=== PATIENT | male | born 1960 | race Caucasian/White ===

== ENCOUNTER 2016-09-01 20:22 | Emergency (ER) | payer OTHER ==
--- NOTE | 2016-09-01 20:53 | ED CLINICAL REPORT ---
Clinical Report - Physicians/Mid Levels [facility] [address] [place] [address] 09/01/2016 20:23 Patient: CELESTE CROWDER Time Seen: 2043; initial patient contact, initial documentation, patient care assumed. Arrived- In handcuffs. Police present. Historian- patient. HISTORY OF PRESENT ILLNESS Chief Complaint: ( CTB). No current or associated symptoms. (pt has absolutely no complaints, pain, concerns, injury/trauma or any illness, here in police custody and officer needs medically clearance to book). Similar symptoms previously: None. Recent medical care: Not recently seen/assessed. REVIEW OF SYSTEMS No fever, sore throat, sinus drainage, nasal congestion or cough. No difficulty breathing, chest pain, abdominal pain, vomiting or diarrhea. All systems otherwise negative, except as recorded above. PAST HISTORY See nurses notes. PROBLEMS: Rib Fracture. Tetanus Status. Lifestyle / Substance Problems. Abdominal Pain. Hepatitis C. Bronchospasm. Back Pain. --20:39 Hollie Lindo R.N. ADDITIONAL SURGERIES: Ankle surgery. Back Surgery. Cholecystectomy. Neck Surgery. Shoulder Surgery. Skin grafting. --20:39 Hollie Lindo R.N. SOCIAL HISTORY Heavy tobacco smoker. Occasional alcohol use. History of heavy IV drug use: heroin, marijuana. No recent travel. Is a local resident. FAMILY HISTORY Negative. ADDITIONAL NOTES The nursing notes have been reviewed with agreement regarding the chief complaint, HPI, ROS, PMH and patient medications and allergies. PHYSICAL EXAM Vital Signs: 09/01/2016 20:38 BP: 116/78. HR: 66. RR: 16. O2 saturation: 98%. Temp: 98.5 F. Pain level now: 0/10. Have been reviewed as normal and appear to be correct. Appearance: Alert. No acute distress. Eyes: Pupils equal, round and reactive to light. Eyes normal inspection. Neck: Normal inspection. Neck supple. CVS: Normal heart rate and rhythm. Heart sounds normal. Pulses normal. Respiratory: No respiratory distress. Breath sounds abnormal. Inspiratory mild bilateral wheezes diffusely. Chest nontender. Abdomen: No visible injury. Soft and nontender. Back: Normal inspection. Skin: Skin warm and dry. Normal skin color. No rash. Normal skin turgor. Extremities: Extremities exhibit normal ROM. No lower extremity edema. Neuro: Oriented X 3. No motor deficit. No sensory deficit. PROGRESS AND PROCEDURES Course of Care: 20:53 09/01/16. pt has brief kenna for #6 er visits, see report for full details. Patient counseled in person regarding the patient's stable condition and diagnosis. 20:52. Differential Diagnosis: Above considerations are based on history and physical exam. Differential diagnosis was discussed with patient. Disposition: Discharged home in good and unchanged condition (20:52). Condition: good and stable. CLINICAL IMPRESSION Normal exam upon presentation, while in the ED and at discharge. INSTRUCTIONS (pt is medically cleared to go with police to [facility]). Warnings: GENERAL WARNINGS: Return or contact your physician immediately if your condition worsens or changes unexpectedly, if not improving as expected, or if other problems arise. Specifically return if problem worsens. Follow-up: Follow up with your doctor in about one week as needed. Call for an appointment. Summary of care provided to patient. Understanding of the discharge instructions verbalized by patient. (Electronically signed by Charley Navarrete A.R.N.P. 09/01/2016 21:25)
--- NOTE | 2016-09-01 20:53 | ED NURSING NOTES ---
Clinical Report - Nurses [facility] [address] [place] [address] 09/01/2016 20:23 Patient: CELESTE CROWDER TRIAGE Triage time 20:35 Sep 01 2016. Acuity: LEVEL 5. Chief Complaint: (clear to book, no chief complaint). 20:41 09/01/16. ROBERT COMA SCORE: [place] Coma Scale: 15- eyes open spontaneously (4); best verbal response- oriented x 4 (5); best motor response- obeys commands (6). --20:41 Hollie Lindo R.N. 20:38 09/01/16. BP: 116/78. HR: 66. RR: 16. O2 saturation: 98%. Temp: 98.5 F. Pain level now: 0/10. --20:41 Hollie Lindo R.N. Weight: 81.6 kg stated. Height/Length: 67 inches Per Patient. BMI: 28.2. --20:35 Hollie Lindo R.N. Medications None. --20:39 Hollie Lindo R.N. Medication/allergy information source: the patient. --20:41 Hollie Lindo R.N. Allergies Codeine. Sulfa Antibiotics. --20:39 Hollie Lindo R.N. Toradol. --20:39 Hollie Lindo R.N. History Historian: police and patient. Arrived in police custody. This started just prior to arrival. 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 PAST MEDICAL HX: Immunizations: up-to-date. SOCIAL HX: Heavy tobacco smoker- 1 pack per day. Alcohol use. History of drug use. No infectious disease exposure. ABUSE ASSESSMENT: No report of abuse. SELF HARM ASSESSMENT: A self harm assessment was performed. The patient answered "no" to the question "Have you recently felt down, depressed, or hopeless?", "Have you noticed less interest or pleasure in doing things?", "Do you have thoughts of harming or killing yourself?", "Are you here because you tried to hurt yourself?", "Have you ever tried to hurt yourself before today?", "Have you recently had thoughts about harming or killing others?" and "Do you have any dangerous items in your possession?". NUTRITIONAL RISK ASSESSMENT: The nutritional risk assessment revealed no deficiencies. FUNCTIONAL ASSESSMENT: Functional assessment: no impairments noted. LEARNING NEEDS ASSESSMENT: The learning needs assessment revealed no barriers. SKIN INTEGRITY ASSESSMENT: Skin integrity risk assessment completed. No skin integrity risk identified. --20:41 Hollie Lindo R.N. PROBLEMS: Rib Fracture. Tetanus Status. Lifestyle / Substance Problems. Abdominal Pain. Hepatitis C. Bronchospasm. Back Pain. --20:39 Hollie Lindo R.N. ADDITIONAL SURGERIES: Ankle surgery. Back Surgery. Cholecystectomy. Neck Surgery. Shoulder Surgery. Skin grafting. --20:39 Hollie Lindo R.N. Interventions ID band on patient. --20:41 Hollie Lindo R.N. PHYSICAL ASSESSMENT 20:42 09/01/16. GENERAL / NEURO / PSYCH: Alert. Oriented X 4. Appears in no acute distress. HEENT: Pupils equal, round and reactive to light. No facial asymmetry noted. Mucous membranes are pink. RESPIRATORY: Breath sounds within normal limits. CVS: Pulses within normal limits. GI / : Abdomen soft and nontender. SKIN: Skin intact. Skin is warm and dry. Normal skin turgor. --20:42 Hollie Lindo R.N. NURSING PROGRESS NOTES 20:41 09/01/16. Patient identifiers checked. Bed placed in lowest position. Brakes of bed on. Patient ready for evaluation. --20:41 Hollie Lindo R.N. DISPOSITION / DISCHARGE 20:59 09/01/16. Condition at departure: improved and stable. The goals identified in the patient's plan of care were met. No learning barriers present. Discharge instructions provided and reviewed with the patient. Patient verbalized understanding. Written instructions provided in Georgian. The patient was discharged to police department facility and accompanied by a police escort. He left the Emergency Department ambulatory and via police department vehicle. --20:59 Hollie Lindo R.N. 20:38 09/01/16. BP: 116/78. HR: 66. RR: 16. O2 saturation: 98%. Temp: 98.5 F. Pain level now: 0/10. --20:59 Hollie Lindo R.N. Departure time: 20:59 Sep 01 2016. --21:00 Hollie Lindo R.N. Locked/Released at 09/01/2016 21:01 by Hollie Lindo R.N.
--- NOTE | 2016-09-01 20:53 | ED CLINICAL REPORT ---
Clinical Report - Physicians/Mid Levels [facility] [address] [place] [address] 09/01/2016 20:23 Patient: CELESTE CROWDER Time Seen: 2043; initial patient contact, initial documentation, patient care assumed. Arrived- In handcuffs. Police present. Historian- patient. HISTORY OF PRESENT ILLNESS Chief Complaint: ( CTB). No current or associated symptoms. (pt has absolutely no complaints, pain, concerns, injury/trauma or any illness, here in police custody and officer needs medically clearance to book). Similar symptoms previously: None. Recent medical care: Not recently seen/assessed. REVIEW OF SYSTEMS No fever, sore throat, sinus drainage, nasal congestion or cough. No difficulty breathing, chest pain, abdominal pain, vomiting or diarrhea. All systems otherwise negative, except as recorded above. PAST HISTORY See nurses notes. PROBLEMS: Rib Fracture. Tetanus Status. Lifestyle / Substance Problems. Abdominal Pain. Hepatitis C. Bronchospasm. Back Pain. --20:39 Hollie Lindo R.N. ADDITIONAL SURGERIES: Ankle surgery. Back Surgery. Cholecystectomy. Neck Surgery. Shoulder Surgery. Skin grafting. --20:39 Hollie Lindo R.N. SOCIAL HISTORY Heavy tobacco smoker. Occasional alcohol use. History of heavy IV drug use: heroin, marijuana. No recent travel. Is a local resident. FAMILY HISTORY Negative. ADDITIONAL NOTES The nursing notes have been reviewed with agreement regarding the chief complaint, HPI, ROS, PMH and patient medications and allergies. PHYSICAL EXAM Vital Signs: 09/01/2016 20:38 BP: 116/78. HR: 66. RR: 16. O2 saturation: 98%. Temp: 98.5 F. Pain level now: 0/10. Have been reviewed as normal and appear to be correct. Appearance: Alert. No acute distress. Eyes: Pupils equal, round and reactive to light. Eyes normal inspection. Neck: Normal inspection. Neck supple. CVS: Normal heart rate and rhythm. Heart sounds normal. Pulses normal. Respiratory: No respiratory distress. Breath sounds abnormal. Inspiratory mild bilateral wheezes diffusely. Chest nontender. Abdomen: No visible injury. Soft and nontender. Back: Normal inspection. Skin: Skin warm and dry. Normal skin color. No rash. Normal skin turgor. Extremities: Extremities exhibit normal ROM. No lower extremity edema. Neuro: Oriented X 3. No motor deficit. No sensory deficit. PROGRESS AND PROCEDURES Course of Care: 20:53 09/01/16. pt has brief kenna for #6 er visits, see report for full details. Patient counseled in person regarding the patient's stable condition and diagnosis. 20:52. Differential Diagnosis: Above considerations are based on history and physical exam. Differential diagnosis was discussed with patient. Disposition: Discharged home in good and unchanged condition (20:52). Condition: good and stable. CLINICAL IMPRESSION Normal exam upon presentation, while in the ED and at discharge. INSTRUCTIONS (pt is medically cleared to go with police to group home). Warnings: GENERAL WARNINGS: Return or contact your physician immediately if your condition worsens or changes unexpectedly, if not improving as expected, or if other problems arise. Specifically return if problem worsens. Follow-up: Follow up with your doctor in about one week as needed. Call for an appointment. Summary of care provided to patient. Understanding of the discharge instructions verbalized by patient. (Electronically signed by Charley Navarrete A.R.N.P. 09/01/2016 21:25)
--- NOTE | 2016-09-01 20:53 | ED NURSING NOTES ---
Clinical Report - Nurses [facility] [address] [place] [address] 09/01/2016 20:23 Patient: CELESTE CROWDER TRIAGE Triage time 20:35 Sep 01 2016. Acuity: LEVEL 5. Chief Complaint: (clear to book, no chief complaint). 20:41 09/01/16. ROBERT COMA SCORE: [place] Coma Scale: 15- eyes open spontaneously (4); best verbal response- oriented x 4 (5); best motor response- obeys commands (6). --20:41 Hollie Lindo R.N. 20:38 09/01/16. BP: 116/78. HR: 66. RR: 16. O2 saturation: 98%. Temp: 98.5 F. Pain level now: 0/10. --20:41 Hollie Lindo R.N. Weight: 81.6 kg stated. Height/Length: 67 inches Per Patient. BMI: 28.2. --20:35 Hollie Lindo R.N. Medications None. --20:39 Hollie Lindo R.N. Medication/allergy information source: the patient. --20:41 Hollie Lindo R.N. Allergies Codeine. Sulfa Antibiotics. --20:39 Hollie Lindo R.N. Toradol. --20:39 Hollie Lindo R.N. History Historian: police and patient. Arrived in police custody. This started just prior to arrival. 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 PAST MEDICAL HX: Immunizations: up-to-date. SOCIAL HX: Heavy tobacco smoker- 1 pack per day. Alcohol use. History of drug use. No infectious disease exposure. ABUSE ASSESSMENT: No report of abuse. SELF HARM ASSESSMENT: A self harm assessment was performed. The patient answered "no" to the question "Have you recently felt down, depressed, or hopeless?", "Have you noticed less interest or pleasure in doing things?", "Do you have thoughts of harming or killing yourself?", "Are you here because you tried to hurt yourself?", "Have you ever tried to hurt yourself before today?", "Have you recently had thoughts about harming or killing others?" and "Do you have any dangerous items in your possession?". NUTRITIONAL RISK ASSESSMENT: The nutritional risk assessment revealed no deficiencies. FUNCTIONAL ASSESSMENT: Functional assessment: no impairments noted. LEARNING NEEDS ASSESSMENT: The learning needs assessment revealed no barriers. SKIN INTEGRITY ASSESSMENT: Skin integrity risk assessment completed. No skin integrity risk identified. --20:41 Hollie Lindo R.N. PROBLEMS: Rib Fracture. Tetanus Status. Lifestyle / Substance Problems. Abdominal Pain. Hepatitis C. Bronchospasm. Back Pain. --20:39 Hollie Lindo R.N. ADDITIONAL SURGERIES: Ankle surgery. Back Surgery. Cholecystectomy. Neck Surgery. Shoulder Surgery. Skin grafting. --20:39 Hollie Lindo R.N. Interventions ID band on patient. --20:41 Hollie Lindo R.N. PHYSICAL ASSESSMENT 20:42 09/01/16. GENERAL / NEURO / PSYCH: Alert. Oriented X 4. Appears in no acute distress. HEENT: Pupils equal, round and reactive to light. No facial asymmetry noted. Mucous membranes are pink. RESPIRATORY: Breath sounds within normal limits. CVS: Pulses within normal limits. GI / : Abdomen soft and nontender. SKIN: Skin intact. Skin is warm and dry. Normal skin turgor. --20:42 Hollie Lindo R.N. NURSING PROGRESS NOTES 20:41 09/01/16. Patient identifiers checked. Bed placed in lowest position. Brakes of bed on. Patient ready for evaluation. --20:41 Hollie Lindo R.N. DISPOSITION / DISCHARGE 20:59 09/01/16. Condition at departure: improved and stable. The goals identified in the patient's plan of care were met. No learning barriers present. Discharge instructions provided and reviewed with the patient. Patient verbalized understanding. Written instructions provided in Romanian. The patient was discharged to police department facility and accompanied by a police escort. He left the Emergency Department ambulatory and via police department vehicle. --20:59 Hollie Lindo R.N. 20:38 09/01/16. BP: 116/78. HR: 66. RR: 16. O2 saturation: 98%. Temp: 98.5 F. Pain level now: 0/10. --20:59 Hollie Lindo R.N. Departure time: 20:59 Sep 01 2016. --21:00 Hollie Lindo R.N. Locked/Released at 09/01/2016 21:01 by Hollie Lindo R.N.
--- NOTE | 2016-09-01 21:25 | ED MED RECONCILIATION SUMMARY ---
Patient: CELESTE CROWDER Medication Reconciliation Report [facility] VisitID: [id number] [address] [place] [address] 55y, M Registration Date/Time: 09/01/2016 Weight: 81.6 kg Height/Length: 67 in. BMI: 28.2 ALLERGIES: Codeine, Sulfa Antibiotics, Toradol The patient's Home Medications are listed below: NONE. The source(s) of the original Home Medication information: patient The following Medications were given to the patient in the Emergency Department: None. The following Medications were prescribed to the patient: None.
--- NOTE | 2016-09-01 21:25 | ED MAR SUMMARY ---
..... Medication Administration Record [facility] [address], [place] [id number] Patient: CELESTE CROWDER Visit ID: [id number] 55y, M Weight: 81.6 kg Height/Length: 67 in BMI: 28.2 ALLERGIES: Toradol, Sulfa Antibiotics, Codeine
--- NOTE | 2016-09-01 21:25 | ED DISCHARGE INSTRUCTIONS ---
Patient: CELESTE CROWDER General Instructions [facility] VisitID: [id number] [address] [place] [address] 55y, M Registration Date/Time: 09/01/2016 Normal exam upon presentation, while in the ED and at discharge. INSTRUCTIONS (pt is medically cleared to go with police to group home). Warnings: GENERAL WARNINGS: Return or contact your physician immediately if your condition worsens or changes unexpectedly, if not improving as expected, or if other problems arise. Specifically return if problem worsens. Follow-up: Follow up with your doctor in about one week as needed. Call for an appointment. Summary of care provided to patient. Understanding of the discharge instructions verbalized by patient. ADDITIONAL INFORMATION Normal Exam [6Yr - Adult] Based on your or your child's exam today, there are no signs of illness or injury. Be assured that the symptoms that worried you are normal. They do not suggest any illness requiring testing or treatment at this time. Home Care: You (or your child) can return to normal activities and diet. If you or your child have new or unusual symptoms not already discussed today, contact the doctor. Follow Up with the doctor for the next routine appointment. For more information: For childrens health information: www.kidshealth.org For adult health information: www.[facility].org You have been given the following additional information: Normal Exam, (Child) (Adult) (Electronically signed by Charley Navarrete A.R.N.P. 09/01/2016 21:25)
--- NOTE | 2016-09-01 21:25 | ED MED RECONCILIATION SUMMARY ---
Patient: CELESTE CROWDER Medication Reconciliation Report [facility] VisitID: [id number] [address] [place] [address] 55y, M Registration Date/Time: 09/01/2016 Weight: 81.6 kg Height/Length: 67 in. BMI: 28.2 ALLERGIES: Codeine, Sulfa Antibiotics, Toradol The patient's Home Medications are listed below: NONE. The source(s) of the original Home Medication information: patient The following Medications were given to the patient in the Emergency Department: None. The following Medications were prescribed to the patient: None.
--- NOTE | 2016-09-01 21:25 | ED MAR SUMMARY ---
..... Medication Administration Record [facility] [address] [place], [place] [id number] Patient: CELESTE CROWDER Visit ID: [id number] 55y, M Weight: 81.6 kg Height/Length: 67 in BMI: 28.2 ALLERGIES: Toradol, Sulfa Antibiotics, Codeine
--- NOTE | 2016-09-01 21:25 | ED DISCHARGE INSTRUCTIONS ---
Patient: CELESTE CROWDER General Instructions [facility] VisitID: [id number] [address] [place] [address] 55y, M Registration Date/Time: 09/01/2016 Normal exam upon presentation, while in the ED and at discharge. INSTRUCTIONS (pt is medically cleared to go with police to long-term). Warnings: GENERAL WARNINGS: Return or contact your physician immediately if your condition worsens or changes unexpectedly, if not improving as expected, or if other problems arise. Specifically return if problem worsens. Follow-up: Follow up with your doctor in about one week as needed. Call for an appointment. Summary of care provided to patient. Understanding of the discharge instructions verbalized by patient. ADDITIONAL INFORMATION Normal Exam [6Yr - Adult] Based on your or your child's exam today, there are no signs of illness or injury. Be assured that the symptoms that worried you are normal. They do not suggest any illness requiring testing or treatment at this time. Home Care: You (or your child) can return to normal activities and diet. If you or your child have new or unusual symptoms not already discussed today, contact the doctor. Follow Up with the doctor for the next routine appointment. For more information: For childrens health information: www.kidshealth.org For adult health information: www.[facility].org You have been given the following additional information: Normal Exam, (Child) (Adult) (Electronically signed by Charley Navarrete A.R.N.P. 09/01/2016 21:25)
== END 2016-09-01 20:59 ==
LOC: ED SRH 20:22
DX: Z02.89 Encounter for other administrative examinations (principal); F17.210 Nicotine dependence, cigarettes, uncomplicated

== ENCOUNTER 2016-11-23 14:35 | Emergency (ER) | payer OTHER ==
--- NOTE | 2016-11-23 15:54 | ED CLINICAL REPORT ---
Clinical Report - Physicians/Mid Levels [facility] [address] [place] [address] 11/23/2016 14:35 Patient: CELESTE CROWDER Time Seen: 14:39; upon arrival, initial patient contact, initial documentation, patient care assumed. Arrived- By private vehicle. Historian- patient. HISTORY OF PRESENT ILLNESS Chief Complaint: BOIL. This started about 3 days ago and is still present and worsening. Not itchy or burning. It is described as painful. It has been located on the left forearm. A cause has been identified (admits to shooting iv heroin into arm and missing the vein). Similar symptoms previously: None. Recent medical care: Not recently seen/assessed. REVIEW OF SYSTEMS No fever. All systems otherwise negative, except as recorded above. PAST HISTORY See nurses notes. PROBLEMS: Normal Exam. Rib Fracture. Mechanism of Injury. Fall. Myofascial Strain. Tetanus Status. Lifestyle / Substance Problems. Vomiting. Abdominal Pain. Hepatitis C. Bronchitis. Bronchospasm. Immunizations. Hypertension. Back Pain. --14:44 Manjeet Stern R.N. ADDITIONAL SURGERIES: Ankle surgery. Back Surgery. Cholecystectomy. Neck Surgery. Shoulder Surgery. Skin grafting. --14:44 Manjeet Stern R.N. SOCIAL HISTORY Light tobacco smoker. History of heavy IV drug use: heroin. Recently used drugs yesterday. Is not under influence in ED. No alcohol use. No recent travel. Is a local resident. FAMILY HISTORY Negative. ADDITIONAL NOTES The nursing notes have been reviewed with agreement regarding the chief complaint, HPI, ROS, PMH and patient medications and allergies. PHYSICAL EXAM Vital Signs: 11/23/2016 14:41 BP: 162/85. HR: 100. RR: 18. O2 saturation: 98%. Temp: 98.2 F. Pain level now: 10/10. Have been reviewed as normal and appear to be correct. Appearance: Alert. Oriented X3. No acute distress. Eyes: Pupils equal, round and reactive to light. Conjunctivae and eyelids normal. Neck: Neck supple. Respiratory: No respiratory distress. Skin: Skin warm and dry. Normal skin color. No rash. Normal skin turgor. Single large abscess with fluctuance, pointing and cellulitis to left forearm. No drainage. Extremities: Normal external inspection. Extremities nontender. Neuro: Oriented X 3. No motor deficit. No sensory deficit. PROGRESS AND PROCEDURES Incision & Drainage of Abscess: The abscess is located in the left forearm. The risks of the procedure, benefits and alternatives were explained. Consent was obtained. Local anesthesia provided using 1% lidocaine. Skin cleansed with Betadine. The abscess was incised with a #11 surgical blade. A large amount of pus was drained. Cavity was irrigated with saline and packed with gauze. Sample obtained for cultures. Estimated blood loss: 10 mL. ( probed to break up inoculates, packed with 1/4 inch iodoform packing, pt tolerated procedure well without issues). Course of Care: 15:02 11/23/16. pt has kenna for #6 er visits, see report for full details. Patient counseled in person regarding the patient's stable condition and diagnosis. Differential Diagnosis: Other possible considerations: substance abuse, abscess, cellulitis, mrsa, folliculitis, insect bite/sting. Above considerations are based on history and physical exam. Differential diagnosis was discussed with patient. Disposition: Discharged home in good and improved condition (15:36). Condition: good and stable. CLINICAL IMPRESSION Single deep abscess to the left upper extremity with incision and drainage. Chronic substance abuse- heroin with anxiety. INSTRUCTIONS Warnings: GENERAL WARNINGS: Return or contact your physician immediately if your condition worsens or changes unexpectedly, if not improving as expected, or if other problems arise. Specifically return if problem worsens. Prescription Medications: Keflex 500 mg: take 1 capsule orally every 8 hours for 10 days. No refill. Motrin 800 mg tablets: take 1 tablet orally every 8 hours as needed for pain. Dispense thirty (30). No refills. Substitution is permissible. Follow-up: Follow up with your doctor in two days for wound check and packing removal. Call for an appointment. Summary of care provided to patient. Understanding of the discharge instructions verbalized by patient. (Electronically signed by Charley Navarrete A.R.N.P. 11/23/2016 17:19)
--- NOTE | 2016-11-23 15:55 | ED ORDER SUMMARY ---
..... Patient: CELESTE CROWDER OrderSheet [facility] VisitID: [id number] [address] [place] [address] 55y, M Registration Date/Time: 11/23/2016 ORDER SHEET Weight: 74.8 kg (stated) Allergies: Codeine, Sulfa Antibiotics, Toradol GENERAL ORDERS: Culture, Wound Surface (Arm) (L forearm) Urgent (15:06 11/23/2016 HBivens A.R.N.P.) (Ack 15:11 Megan) (15:25 EHassan R.N.) I&D Tray (15:07 11/23/2016 HBivens A.R.N.P.) (15:25 EHassan R.N.) Dress Wounds (15:07 11/23/2016 HBivens A.R.N.P.) (15:25 EHassan R.N.) MEDICATION ORDERS: Lidocaine Injection 1% plain (NOW) (15:06 11/23/2016 HBivens A.R.N.P.) (Ack 15:35 JBoardley R.N.) (15:39 EHassan R.N.) Oxycodone-APAP PO 5/325 mg (HIGH ALERT MEDICATION, NOW) (15:30 11/23/2016 HBivens A.R.N.P.) (Ack 15:35 JBoardley R.N.) (15:38 EHassan R.N.) Ceftriaxone IM 1 gm (NOW) (15:48 11/23/2016 HBivens A.R.N.P.) (Ack 15:49 JBoardley R.N.) (15:54 JBoardley R.N.) IV FLUIDS: ORDER SHEET NOTES: [Electronically signed by Charley Navarrete.R.N.P. (17:19 11/23/2016)] [Electronically signed by Manjeet Stern R.N. (18:28 11/23/2016)] [Electronically locked/signed by Manjeet Stern R.N. (18:28 11/23/2016)]
--- NOTE | 2016-11-23 15:55 | ED ORDER SUMMARY ---
..... Patient: CELESTE CROWDER OrderSheet [facility] VisitID: [id number] [address] [place] [address] 55y, M Registration Date/Time: 11/23/2016 ORDER SHEET Weight: 74.8 kg (stated) Allergies: Codeine, Sulfa Antibiotics, Toradol GENERAL ORDERS: Culture, Wound Surface (Arm) (L forearm) Urgent (15:06 11/23/2016 HBivens A.R.N.P.) (Ack 15:11 Megan) (15:25 EHassan R.N.) I&D Tray (15:07 11/23/2016 HBivens A.R.N.P.) (15:25 EHassan R.N.) Dress Wounds (15:07 11/23/2016 HBivens A.R.N.P.) (15:25 EHassan R.N.) MEDICATION ORDERS: Lidocaine Injection 1% plain (NOW) (15:06 11/23/2016 HBivens A.R.N.P.) (Ack 15:35 JBoardley R.N.) (15:39 EHassan R.N.) Oxycodone-APAP PO 5/325 mg (HIGH ALERT MEDICATION, NOW) (15:30 11/23/2016 HBivens A.R.N.P.) (Ack 15:35 JBoardley R.N.) (15:38 EHassan R.N.) Ceftriaxone IM 1 gm (NOW) (15:48 11/23/2016 HBivens A.R.N.P.) (Ack 15:49 JBoardley R.N.) (15:54 JBoardley R.N.) IV FLUIDS: ORDER SHEET NOTES: [Electronically signed by Charley Navarrete.R.N.P. (17:19 11/23/2016)] [Electronically signed by Manjeet Stern R.N. (18:28 11/23/2016)] [Electronically locked/signed by Manjeet Stern R.N. (18:28 11/23/2016)]
--- NOTE | 2016-11-23 15:55 | ED NURSING NOTES ---
Clinical Report - Nurses [facility] [address] [place] [address] 11/23/2016 14:35 Patient: CELESTE CROWDER TRIAGE Triage time 14:42. Acuity: LEVEL 4. Chief Complaint: BOIL. 14:42 11/23/16. 14:42 11/23/16. Alert. SEPSIS SCREEN: Sepsis Screen. Negative (no infection suspected/documented). --14:45 Manjeet Stern R.N. 14:41 11/23/16. BP: 162/85. HR: 100. RR: 18. O2 saturation: 98% on room air. Temp: 98.2 F (oral). Pain level now: 04/19. --14:45 Manjeet Stern R.N. ( Left forearm pain from abscess pt states he injected IV drugs. Pt states he has to be DC'd in time to get to an appt at 1600.). --14:58 Manjeet Stern R.N. Weight: 74.8 kg stated. Height/Length: 67 inches Per Patient. BMI: 25.9. --14:42 Manjeet Stern R.N. Medications None. --14:44 Manjeet Stern R.N. Medication/allergy information source: the patient. --14:45 Manjeet Stern R.N. Allergies Codeine. Sulfa Antibiotics. Toradol. --14:44 Manjeet Stern R.N. History Arrived by private vehicle. Historian: patient. Accompanied by family. Primary physician (NONE). 14:42 11/23/16. Reported as located on the left forearm. Onset. (3 days ago). It is described as itchy, burning and painful. 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 PAST MEDICAL HX: Immunizations: up-to-date. SOCIAL HX: Current every day light tobacco smoker (cigarette)- less than 1/2 a pack per day. History of heavy IV drug use: heroin. Recently used drugs just prior to arrival. No alcohol use. No infectious disease exposure. ABUSE ASSESSMENT: No report of abuse. FALL RISK ASSESSMENT: Fall risk assessment completed. No fall risk identified. NUTRITIONAL RISK ASSESSMENT: The nutritional risk assessment revealed no deficiencies. FUNCTIONAL ASSESSMENT: Functional assessment: no impairments noted. LEARNING NEEDS ASSESSMENT: The learning needs assessment revealed no barriers. SKIN INTEGRITY ASSESSMENT: Skin integrity risk assessment completed. No skin integrity risk identified. --14:45 Manjeet Stern R.N. PROBLEMS: Normal Exam. Rib Fracture. Mechanism of Injury. Fall. Myofascial Strain. Tetanus Status. Lifestyle / Substance Problems. Vomiting. Abdominal Pain. Hepatitis C. Bronchitis. Bronchospasm. Immunizations. Hypertension. Back Pain. --14:44 Manjeet Stern R.N. ADDITIONAL SURGERIES: Ankle surgery. Back Surgery. Cholecystectomy. Neck Surgery. Shoulder Surgery. Skin grafting. --14:44 Manjeet Stern R.N. Assessment 14:42 11/23/16. --14:45 Manjeet Stern R.N. Interventions 14:42 11/23/16. 14:42 11/23/16. ID and allergy band on patient. To treatment room. --14:45 Manjeet Stern R.N. PHYSICAL ASSESSMENT 14:45 11/23/16. GENERAL / NEURO / PSYCH: Alert. Oriented X 4. RESPIRATORY: Respirations not labored. CVS: Capillary refill less than 2 seconds. SKIN: Wound on the left forearm. Tenderness on the left forearm. Erythema on the left forearm. --14:45 Manjeet Stern R.N. NURSING PROGRESS NOTES 14:45 11/23/16. The plan of care for this patient has been created. Head of bed elevated. Reassurance given. Two patient identifiers checked. Call light placed in reach. Side rails up x 2. Bed placed in lowest position. Brakes of bed on. Brakes of chair on. --14:45 Manjeet Stern R.N. 14:45 11/23/16. Patient ready for evaluation- chart flagged and notification provided. --14:45 Manjeet Stern R.N. Reassurance given. The patient is calm and resting quietly. Overall patient status is the same- he states feels better. ( Packing done by ESCROW CLOSER Charley, tolerated well, cultured sent as ordered.). GENERAL / NEURO / PSYCH: The patient reports pain. Denies anxiety. SKIN: Denies itching. Patient identifiers checked. Call light placed in reach. --15:36 Maria L Duran R.N. 15:34 11/23/16. BP: 133/65. HR: 100. RR: 18. O2 saturation: 96%. Pain level now: 11/17. --15:36 Maria L Duran R.N. 15:38 11/23/2016 Oxycodone-APAP (Oxycodone-Acetaminophen) PO 5/325 mg Tablets 1 tab given. Allergies verified, confirmed 5 rights and sedative warning given to the patient. --15:38 Maria L Duran R.N. 15:39 11/23/2016 Lidocaine Injection 1 % given. Allergies verified and confirmed 5 rights. (left forearm). --15:39 Maria L Duran R.N. 15:54 11/23/2016 Ceftriaxone IM 1 gm given. Given in the left ventral gluteus. Allergies verified and confirmed 5 rights. --15:54 Manjeet Stern R.N. 16:02 11/23/16. Reassessment after medication administered. He has had no adverse reaction. --16:02 Manjeet Stern R.N. 16:03 11/23/16. --16:03 Manjeet Stern R.N. 16:02 11/23/16. BP: 136/71. HR: 80. RR: 14. O2 saturation: 99% on room air. Temp: 97.9 F (oral). --16:03 Manjeet Stern R.N. DISPOSITION / DISCHARGE 16:03 11/23/16. Condition at departure: improved. The goals identified in the patient's plan of care were met. No learning barriers present. Discharge instructions provided and reviewed with the patient. Reviewed warnings. Reviewed medication(s). Treatments reviewed. Patient verbalized understanding. Written instructions provided in Turkish. The patient was discharged by the physician. He was discharged home. He left the Emergency Department ambulatory and via private vehicle. Patient driving. FALL RISK ASSESSMENT: Fall risk assessment completed. No fall risk identified. --16:03 Manjeet Stern R.N. 16:02 11/23/16. BP: 136/71. HR: 80. RR: 14. O2 saturation: 99% on room air. Temp: 97.9 F (oral). --16:03 Manjeet Stern R.N. 16:03 11/23/16. Departure time: 16:03. --16:03 Manjeet Stern R.N. 16:12 11/23/16. 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 --16:12 Manjeet Stern R.N. 16:12 11/23/16. ( Left hat in registration). --16:12 Manjeet Stern R.N. Locked/Released at 11/23/2016 18:28 by Manjeet Stern R.N.
--- NOTE | 2016-11-23 15:55 | ED NURSING NOTES ---
Clinical Report - Nurses [facility] [address] [place] [address] 11/23/2016 14:35 Patient: CELESTE CROWDER TRIAGE Triage time 14:42. Acuity: LEVEL 4. Chief Complaint: BOIL. 14:42 11/23/16. 14:42 11/23/16. Alert. SEPSIS SCREEN: Sepsis Screen. Negative (no infection suspected/documented). --14:45 Manjeet Stern R.N. 14:41 11/23/16. BP: 162/85. HR: 100. RR: 18. O2 saturation: 98% on room air. Temp: 98.2 F (oral). Pain level now: 04/19. --14:45 Manjeet Stern R.N. ( Left forearm pain from abscess pt states he injected IV drugs. Pt states he has to be DC'd in time to get to an appt at 1600.). --14:58 Manjeet Stern R.N. Weight: 74.8 kg stated. Height/Length: 67 inches Per Patient. BMI: 25.9. --14:42 Manjeet Stern R.N. Medications None. --14:44 Manjeet Stern R.N. Medication/allergy information source: the patient. --14:45 Manjeet Stern R.N. Allergies Codeine. Sulfa Antibiotics. Toradol. --14:44 Manjeet Stern R.N. History Arrived by private vehicle. Historian: patient. Accompanied by family. Primary physician (NONE). 14:42 11/23/16. Reported as located on the left forearm. Onset. (3 days ago). It is described as itchy, burning and painful. Treatment TOURIST ESCORT: None. PAST MEDICAL HX: Immunizations: up-to-date. SOCIAL HX: Current every day light tobacco smoker (cigarette)- less than 1/2 a pack per day. History of heavy IV drug use: heroin. Recently used drugs just prior to arrival. No alcohol use. No infectious disease exposure. ABUSE ASSESSMENT: No report of abuse. FALL RISK ASSESSMENT: Fall risk assessment completed. No fall risk identified. NUTRITIONAL RISK ASSESSMENT: The nutritional risk assessment revealed no deficiencies. FUNCTIONAL ASSESSMENT: Functional assessment: no impairments noted. LEARNING NEEDS ASSESSMENT: The learning needs assessment revealed no barriers. SKIN INTEGRITY ASSESSMENT: Skin integrity risk assessment completed. No skin integrity risk identified. --14:45 Manjeet Stern R.N. PROBLEMS: Normal Exam. Rib Fracture. Mechanism of Injury. Fall. Myofascial Strain. Tetanus Status. Lifestyle / Substance Problems. Vomiting. Abdominal Pain. Hepatitis C. Bronchitis. Bronchospasm. Immunizations. Hypertension. Back Pain. --14:44 Manjeet Stern R.N. ADDITIONAL SURGERIES: Ankle surgery. Back Surgery. Cholecystectomy. Neck Surgery. Shoulder Surgery. Skin grafting. --14:44 Manjeet Stern R.N. Assessment 14:42 11/23/16. --14:45 Manjeet Stern R.N. Interventions 14:42 11/23/16. 14:42 11/23/16. ID and allergy band on patient. To treatment room. --14:45 Manjeet Stern R.N. PHYSICAL ASSESSMENT 14:45 11/23/16. GENERAL / NEURO / PSYCH: Alert. Oriented X 4. RESPIRATORY: Respirations not labored. CVS: Capillary refill less than 2 seconds. SKIN: Wound on the left forearm. Tenderness on the left forearm. Erythema on the left forearm. --14:45 Manjeet Stern R.N. NURSING PROGRESS NOTES 14:45 11/23/16. The plan of care for this patient has been created. Head of bed elevated. Reassurance given. Two patient identifiers checked. Call light placed in reach. Side rails up x 2. Bed placed in lowest position. Brakes of bed on. Brakes of chair on. --14:45 Manjeet Stern R.N. 14:45 11/23/16. Patient ready for evaluation- chart flagged and notification provided. --14:45 Manjeet Stern R.N. Reassurance given. The patient is calm and resting quietly. Overall patient status is the same- he states feels better. ( Packing done by CHALKER SOLES Charley, tolerated well, cultured sent as ordered.). GENERAL / NEURO / PSYCH: The patient reports pain. Denies anxiety. SKIN: Denies itching. Patient identifiers checked. Call light placed in reach. --15:36 Maria L Duran R.N. 15:34 11/23/16. BP: 133/65. HR: 100. RR: 18. O2 saturation: 96%. Pain level now: 11/17. --15:36 Maria L Duran R.N. 15:38 11/23/2016 Oxycodone-APAP (Oxycodone-Acetaminophen) PO 5/325 mg Tablets 1 tab given. Allergies verified, confirmed 5 rights and sedative warning given to the patient. --15:38 Maria L Duran R.N. 15:39 11/23/2016 Lidocaine Injection 1 % given. Allergies verified and confirmed 5 rights. (left forearm). --15:39 Maria L Duran R.N. 15:54 11/23/2016 Ceftriaxone IM 1 gm given. Given in the left ventral gluteus. Allergies verified and confirmed 5 rights. --15:54 Manjeet Stern R.N. 16:02 11/23/16. Reassessment after medication administered. He has had no adverse reaction. --16:02 Manjeet Stern R.N. 16:03 11/23/16. --16:03 Manjeet Stern R.N. 16:02 11/23/16. BP: 136/71. HR: 80. RR: 14. O2 saturation: 99% on room air. Temp: 97.9 F (oral). --16:03 Manjeet Stern R.N. DISPOSITION / DISCHARGE 16:03 11/23/16. Condition at departure: improved. The goals identified in the patient's plan of care were met. No learning barriers present. Discharge instructions provided and reviewed with the patient. Reviewed warnings. Reviewed medication(s). Treatments reviewed. Patient verbalized understanding. Written instructions provided in Belarusian. The patient was discharged by the physician. He was discharged home. He left the Emergency Department ambulatory and via private vehicle. Patient driving. FALL RISK ASSESSMENT: Fall risk assessment completed. No fall risk identified. --16:03 Manjeet Stern R.N. 16:02 11/23/16. BP: 136/71. HR: 80. RR: 14. O2 saturation: 99% on room air. Temp: 97.9 F (oral). --16:03 Manjeet Stern R.N. 16:03 11/23/16. Departure time: 16:03. --16:03 Manjeet Stern R.N. 16:12 11/23/16. 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 --16:12 Manjeet Stern R.N. 16:12 11/23/16. ( Left hat in registration). --16:12 Manjeet Stern R.N. Locked/Released at 11/23/2016 18:28 by Manjeet Stern R.N.
--- NOTE | 2016-11-23 18:28 | ED DISCHARGE INSTRUCTIONS ---
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 Chronic substance abuse- heroin with anxiety. INSTRUCTIONS Warnings: GENERAL WARNINGS: Return or contact your physician immediately if your condition worsens or changes unexpectedly, if not improving as expected, or if other problems arise. Specifically return if problem worsens. Prescription Medications: Keflex 500 mg: take 1 capsule orally every 8 hours for 10 days. No refill. Motrin 800 mg tablets: take 1 tablet orally every 8 hours as needed for pain. Dispense thirty (30). No refills. Substitution is permissible. Follow-up: Follow up with your doctor in two days for wound check and packing removal. Call for an appointment. Summary of care provided to patient. Understanding of the discharge instructions verbalized by patient. ADDITIONAL INFORMATION Abscess [Incision & Drainage] An abscess (sometimes called a boil) occurs when bacteria get trapped under the skin and begin to grow. Pus forms inside the abscess as the body responds to the bacteria. An abscess can occur with an insect bite, ingrown hair, blocked oil gland, pimple, cyst, or puncture wound. Treatment of your abscess has required an incision to drain the pus. If the abscess pocket was large, a gauze packing may have been inserted. This will need to be removed and possibly replaced on your next visit. Antibiotics are not required in the treatment of a simple abscess, unless the infection is spreading into the skin around the wound (known as cellulitis). Healing of the wound will take about one to two weeks depending on the size of the abscess. Healthy tissue will grow from the bottom and sides of the opening until it seals over. Home Care: The wound may drain for the first two days. Cover the wound with a clean dry dressing. If the dressing becomes soaked with blood or pus, change it. If a gauze packing was placed inside the abscess cavity, you may be advised to remove it yourself. You may do this in the shower. Once the packing is removed, you should wash the area in the shower or bath 3 to 4 times a day, until the skin opening has closed. If you were prescribed antibiotics, take them as directed until they are all gone. You may use acetaminophen (Tylenol) or ibuprofen (Motrin, Advil) to control pain, unless another pain medicine was prescribed. [ NOTE: If you have liver disease or ever had a stomach ulcer, talk with your doctor before using these medicines.] Follow Up with your doctor as advised by our staff. If a gauze packing was inserted in your wound, it should be removed in 1-2 days. Check your wound every day for the signs of worsening infection listed below. Get Prompt Medical Attention if any of the following occur: Increasing redness or swelling Red streaks in the skin leading away from the wound Increasing local pain or swelling Continued pus draining from the wound two days after treatment Fever of 100.4F (38C) or higher, or as directed by your healthcare provider Staph Infection (MRSA) "Staph" is the short name for the common bacteria called "staphylococcus aureus". Staph bacteria are often present on the skin without causing an infection. If it gets under the skin an infection occurs. This causes redness, tenderness, swelling and sometimes fluid drainage. MRSA stands for "Methicillin-Resistant Staph Aureus". Unlike a common staph infection, MRSA bacteria are resistant to the usual antibiotics and harder to treat. Also, MRSA is more toxic than common staph bacteria. It can spread quickly throughout the body and cause a life-threatening illness. MRSA is spread to others by direct physical contact with the bacteria. MRSA can also be transmitted from items contaminated by a person who has the bacteria, such as bandages, towels, bed sheets, or sports equipment. It is not spread through the air. Once you have a MRSA skin infection, you are at risk of having it recur in the future. If MRSA infection is suspected, the doctor may take a wound culture to confirm the diagnosis. Any abscess will be drained. One or sometimes two antibiotics that work against MRSA will be prescribed. Home Care: 1) Take any antibiotics prescribed exactly as directed until they are gone. 2) Follow the same washing procedures as outlined for Household Members below. 3) Keep draining wounds covered with clean, dry bandages. Change dressings as they become soiled. 4) You and those in contact with you should wash their hands frequently with soap and warm water or use an alcohol-based hand host/hostess head. Do this after each time you change the bandage or touch the wound. 5) Avoid sharing personal items such as towels, washcloths, razors, clothing, or uniforms. Wash soiled sheets, towels or clothes in hot water with laundry detergent. Use an automatic clothes dryer set on high to kill any remaining bacteria. 6) Remove any artificial nails and nail [place]. 7) If you use a gym, wipe down equipment before and after each use. Treatment Of Household Members If you have been diagnosed with possible MRSA infection, those living with you are at higher risk of carrying the bacteria on their skin or in their nose, even if there is no sign of infection. Bacteria must be removed from the skin of all household members (including you) at the same time, so that it is not passed back and forth. Advise them to remove the bacteria as follows: Wash your whole body (scalp to toes) daily for five days with Hibiclens (chlorhexidine). Scrub fingernails with a brush for one minute twice a day. If any skin infections are present (boils, abscess, infected cut) these must be treated by a doctor. Washing alone will not treat a MRSA infection. Clean counter tops and children's toys; do not share personal items such as toothbrush and razors. It is okay to share glasses, plates, utensils. If antibiotic ointment was prescribed use it as directed. Follow Up with your doctor or as advised by our staff. If a wound culture was taken, call as directed in two days to obtain the results. If the culture result is positive for MRSA, tell medical personnel in the future that you were treated for this type of infection. Get Prompt Medical Attention if any of the following occur: -- Increasing redness, swelling or pain -- Red streaks in the skin around the wound -- Weakness or dizziness -- New appearance of pus or drainage from the wound -- New fever over 100.4 F (38.0 C) Drug Abuse Use and abuse of such drugs as marijuana, amphetamines (speed, crank), cocaine, heroin or prescription pain medicines (Vicodin, codeine), sedatives and sleeping pills (Valium, Klonopin), PCP, mescaline and LSD may lead to addiction or dependence. Once this occurs, you are at greater risk for any of the following: Craving for the drug and unable to stop using the drug even though you think you want to stop (psychological dependence) Drug withdrawal symptoms if you stop taking the drug (physical dependence) Loss of your job or your family Arrest, conviction and senior care sentence for possession of an illegal substance or for driving under the influence of such a substance Accidental injuries to yourself or others while you are under the influence of the drug (in a car or at home). HIV infection (much greater risk if you use IV drugs) Other sexually transmitted diseases (herpes, chlamydia, gonorrhea and others) Severe and fatal infection of the heart valves (if you use IV drugs) Stroke, heart attack, hepatitis B or C, kidney failure from overdose Home Care: Admit you have a drug problem. Ask for help from your family and close friends. Seek professional help. This could be in the form of individual psychotherapy or counseling or an outpatient, inpatient, or residential drug treatment program. Join a self-help group for drug abuse. Avoid friends who abuse drugs themselves or tempt you to continue abusing drugs. Eat a balanced diet and begin a regular exercise program. Follow Up with your doctor or as advised by our staff. Contact one of the resources below for help. National [place] on Alcoholism and Drug Dependence www.ncadd.org 617-749-KBXY Narcotics Anonymous www.na.org 168-413-6008 National Alcohol and Substance Abuse Information Center (for referral to treatment programs) www.add[employer]care[employer] [employer] 273-919-4109 Get Prompt Medical Attention if any of the following occur: Agitation, anxiety, unable to sleep Unintended weight loss (more than 10 to 15 pounds over 3 months) Seizure Chest pain Fever of 100.4F (38C) or higher, or as directed by your healthcare provider Excess drowsiness or inability to be awakened Shortness of breath Slow breathing under 8 breaths per minute Cough with colored sputum Redness, swelling or tenderness at an injection site Cephalexin Monohydrate Oral tablet What is this medicine? CEPHALEXIN (sef a KOBY in) is a cephalosporin antibiotic. It is used to treat certain kinds of bacterial infections It will not work for colds, flu, or other viral infections. How should I use this medicine? Take this medicine by mouth with a full glass of water. Follow the directions on the prescription label. This medicine can be taken with or without food. Take your medicine at regular intervals. Do not take your medicine more often than directed. Take all of your medicine as directed even if you think you are better. Do not skip doses or stop your medicine early. Talk to your life support technician regarding the use of this medicine in children. While this drug may be prescribed for selected conditions, precautions do apply. What side effects may I notice from receiving this medicine? Side effects that you should report to your doctor or health career information specialist as soon as possible: allergic reactions like skin rash, itching or hives, swelling of the face, lips, or tongue breathing problems pain or trouble passing urine redness, blistering, peeling or loosening of the skin, including inside the mouth severe or watery diarrhea unusually weak or tired yellowing of the eyes, skin Side effects that usually do not require medical attention (report to your doctor or health career information specialist if they continue or are bothersome): gas or heartburn genital or anal irritation headache joint or muscle pain nausea, vomiting What may interact with this medicine? probenecid some other antibiotics What if I miss a dose? If you miss a dose, take it as soon as you can. If it is almost time for your next dose, take only that dose. Do not take double or extra doses. There should be at least 4 to 6 hours between doses. Where should I keep my medicine? Keep out of the reach of children. Store at room temperature between 59 and 86 degrees F (15 and 30 degrees C). Throw away any unused medicine after the expiration date. What should I tell my health care provider before I take this medicine? They need to know if you have any of these conditions: kidney disease stomach or intestine problems, especially colitis an unusual or allergic reaction to cephalexin, other cephalosporins, penicillins, other antibiotics, medicines, foods, dyes or preservatives or trying to get breast-feeding What should I watch for while using this medicine? Tell your doctor or health career information specialist if your symptoms do not begin to improve in a few days. Do not treat diarrhea with over the counter products. Contact your doctor if you have diarrhea that lasts more than 2 days or if it is severe and watery. If you have diabetes, you may get a false-positive result for sugar in your urine. Check with your doctor or health career information specialist. Ibuprofen Oral tablet What is this medicine? IBUPROFEN (eye BYOO proe fen) is a non-steroidal anti-inflammatory drug (NSAID). It is used for dental pain, fever, headaches or migraines, osteoarthritis, rheumatoid arthritis, or painful monthly periods. It can also relieve minor aches and pains caused by a cold, flu, or sore throat. How should I use this medicine? Take this medicine by mouth with a glass of water. Follow the directions on the prescription label. Take this medicine with food if your stomach gets upset. Try to not lie down for at least 10 minutes after you take the medicine. Take your medicine at regular intervals. Do not take your medicine more often than directed. A special MedGuide will be given to you by the pharmacist with each prescription and refill. Be sure to read this information carefully each time. Talk to your life support technician regarding the use of this medicine in children. Special care may be needed. What side effects may I notice from receiving this medicine? Side effects that you should report to your doctor or health career information specialist as soon as possible: allergic reactions like skin rash, itching or hives, swelling of the face, lips, or tongue black or bloody stools, blood in the urine or in vomit breathing problems changes in vision chest pain general ill feeling or flu-like symptoms nausea or vomiting redness, blistering, peeling or loosening of the skin, including inside the mouth slurred speech or weakness on one side of the body stomach pain unexplained weight gain or swelling unusually weak or tired yellowing of eyes or skin Side effects that usually do not require medical attention (report to your doctor or health career information specialist if they continue or are bothersome): constipation or diarrhea dizziness gas or heartburn stomach upset What may interact with this medicine? Do not take this medicine with any of the following medications: cidofovir ketorolac methotrexate pemetrexed This medicine may also interact with the following medications: alcohol aspirin diuretics lithium other drugs for inflammation like prednisone warfarin What if I miss a dose? If you miss a dose, take it as soon as you can. If it is almost time for your next dose, take only that dose. Do not take double or extra doses. Where should I keep my medicine? Keep out of the reach of children. Store at room temperature between 15 and 30 degrees C (59 and 86 degrees F). Keep container tightly closed. Throw away any unused medicine after the expiration date. What should I tell my health care provider before I take this medicine? They need to know if you have any of these conditions: asthma cigarette smoker drink more than 3 alcohol containing drinks a day heart disease or circulation problems such as heart failure or leg edema (fluid retention) high blood pressure kidney disease liver disease stomach bleeding or ulcers an unusual or allergic reaction to ibuprofen, aspirin, other NSAIDS, other medicines, foods, dyes, or preservatives or trying to get breast-feeding What should I watch for while using this medicine? Tell your doctor or healthcare professional if your symptoms do not start to get better or if they get worse. This medicine does not prevent heart attack or stroke. In fact, this medicine may increase the chance of a heart attack or stroke. The chance may increase with longer use of this medicine and in people who have heart disease. If you take aspirin to prevent heart attack or stroke, talk with your doctor or health career information specialist. Do not take other medicines that contain aspirin, ibuprofen, or naproxen with this medicine. Side effects such as stomach upset, nausea, or ulcers may be more likely to occur. Many medicines available without a prescription should not be taken with this medicine. This medicine can cause ulcers and bleeding in the stomach and intestines at any time during treatment. Ulcers and bleeding can happen without warning symptoms and can cause . To reduce your risk, do not smoke cigarettes or drink alcohol while you are taking this medicine. You may get drowsy or dizzy. Do not drive, use machinery, or do anything that needs mental alertness until you know how this medicine affects you. Do not stand or sit up quickly, especially if you are an older patient. This reduces the risk of dizzy or fainting spells. This medicine can cause you to bleed more easily. Try to avoid damage to your teeth and gums when you brush or floss your teeth. You have been given the following additional information: Abscess, Incision And Drainage MRSA Skin Infection, Suspected Or Confirmed Drug Abuse Cephalexin Monohydrate Oral tablet Ibuprofen Oral tablet (Electronically signed by Charley Navarrete A.R.N.P. 11/23/2016 17:19)
--- NOTE | 2016-11-23 18:28 | ED DISCHARGE INSTRUCTIONS ---
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 Chronic substance abuse- heroin with anxiety. INSTRUCTIONS Warnings: GENERAL WARNINGS: Return or contact your physician immediately if your condition worsens or changes unexpectedly, if not improving as expected, or if other problems arise. Specifically return if problem worsens. Prescription Medications: Keflex 500 mg: take 1 capsule orally every 8 hours for 10 days. No refill. Motrin 800 mg tablets: take 1 tablet orally every 8 hours as needed for pain. Dispense thirty (30). No refills. Substitution is permissible. Follow-up: Follow up with your doctor in two days for wound check and packing removal. Call for an appointment. Summary of care provided to patient. Understanding of the discharge instructions verbalized by patient. ADDITIONAL INFORMATION Abscess [Incision & Drainage] An abscess (sometimes called a boil) occurs when bacteria get trapped under the skin and begin to grow. Pus forms inside the abscess as the body responds to the bacteria. An abscess can occur with an insect bite, ingrown hair, blocked oil gland, pimple, cyst, or puncture wound. Treatment of your abscess has required an incision to drain the pus. If the abscess pocket was large, a gauze packing may have been inserted. This will need to be removed and possibly replaced on your next visit. Antibiotics are not required in the treatment of a simple abscess, unless the infection is spreading into the skin around the wound (known as cellulitis). Healing of the wound will take about one to two weeks depending on the size of the abscess. Healthy tissue will grow from the bottom and sides of the opening until it seals over. Home Care: The wound may drain for the first two days. Cover the wound with a clean dry dressing. If the dressing becomes soaked with blood or pus, change it. If a gauze packing was placed inside the abscess cavity, you may be advised to remove it yourself. You may do this in the shower. Once the packing is removed, you should wash the area in the shower or bath 3 to 4 times a day, until the skin opening has closed. If you were prescribed antibiotics, take them as directed until they are all gone. You may use acetaminophen (Tylenol) or ibuprofen (Motrin, Advil) to control pain, unless another pain medicine was prescribed. [ NOTE: If you have liver disease or ever had a stomach ulcer, talk with your doctor before using these medicines.] Follow Up with your doctor as advised by our staff. If a gauze packing was inserted in your wound, it should be removed in 1-2 days. Check your wound every day for the signs of worsening infection listed below. Get Prompt Medical Attention if any of the following occur: Increasing redness or swelling Red streaks in the skin leading away from the wound Increasing local pain or swelling Continued pus draining from the wound two days after treatment Fever of 100.4F (38C) or higher, or as directed by your healthcare provider Staph Infection (MRSA) "Staph" is the short name for the common bacteria called "staphylococcus aureus". Staph bacteria are often present on the skin without causing an infection. If it gets under the skin an infection occurs. This causes redness, tenderness, swelling and sometimes fluid drainage. MRSA stands for "Methicillin-Resistant Staph Aureus". Unlike a common staph infection, MRSA bacteria are resistant to the usual antibiotics and harder to treat. Also, MRSA is more toxic than common staph bacteria. It can spread quickly throughout the body and cause a life-threatening illness. MRSA is spread to others by direct physical contact with the bacteria. MRSA can also be transmitted from items contaminated by a person who has the bacteria, such as bandages, towels, bed sheets, or sports equipment. It is not spread through the air. Once you have a MRSA skin infection, you are at risk of having it recur in the future. If MRSA infection is suspected, the doctor may take a wound culture to confirm the diagnosis. Any abscess will be drained. One or sometimes two antibiotics that work against MRSA will be prescribed. Home Care: 1) Take any antibiotics prescribed exactly as directed until they are gone. 2) Follow the same washing procedures as outlined for Household Members below. 3) Keep draining wounds covered with clean, dry bandages. Change dressings as they become soiled. 4) You and those in contact with you should wash their hands frequently with soap and warm water or use an alcohol-based hand battery stacker. Do this after each time you change the bandage or touch the wound. 5) Avoid sharing personal items such as towels, washcloths, razors, clothing, or uniforms. Wash soiled sheets, towels or clothes in hot water with laundry detergent. Use an automatic clothes dryer set on high to kill any remaining bacteria. 6) Remove any artificial nails and nail tuvaluan. 7) If you use a gym, wipe down equipment before and after each use. Treatment Of Household Members If you have been diagnosed with possible MRSA infection, those living with you are at higher risk of carrying the bacteria on their skin or in their nose, even if there is no sign of infection. Bacteria must be removed from the skin of all household members (including you) at the same time, so that it is not passed back and forth. Advise them to remove the bacteria as follows: Wash your whole body (scalp to toes) daily for five days with Hibiclens (chlorhexidine). Scrub fingernails with a brush for one minute twice a day. If any skin infections are present (boils, abscess, infected cut) these must be treated by a doctor. Washing alone will not treat a MRSA infection. Clean counter tops and children's toys; do not share personal items such as toothbrush and razors. It is okay to share glasses, plates, utensils. If antibiotic ointment was prescribed use it as directed. Follow Up with your doctor or as advised by our staff. If a wound culture was taken, call as directed in two days to obtain the results. If the culture result is positive for MRSA, tell medical personnel in the future that you were treated for this type of infection. Get Prompt Medical Attention if any of the following occur: -- Increasing redness, swelling or pain -- Red streaks in the skin around the wound -- Weakness or dizziness -- New appearance of pus or drainage from the wound -- New fever over 100.4 F (38.0 C) Drug Abuse Use and abuse of such drugs as marijuana, amphetamines (speed, crank), cocaine, heroin or prescription pain medicines (Vicodin, codeine), sedatives and sleeping pills (Valium, Klonopin), PCP, mescaline and LSD may lead to addiction or dependence. Once this occurs, you are at greater risk for any of the following: Craving for the drug and unable to stop using the drug even though you think you want to stop (psychological dependence) Drug withdrawal symptoms if you stop taking the drug (physical dependence) Loss of your job or your family Arrest, conviction and [facility] sentence for possession of an illegal substance or for driving under the influence of such a substance Accidental injuries to yourself or others while you are under the influence of the drug (in a car or at home). HIV infection (much greater risk if you use IV drugs) Other sexually transmitted diseases (herpes, chlamydia, gonorrhea and others) Severe and fatal infection of the heart valves (if you use IV drugs) Stroke, heart attack, hepatitis B or C, kidney failure from overdose Home Care: Admit you have a drug problem. Ask for help from your family and close friends. Seek professional help. This could be in the form of individual psychotherapy or counseling or an outpatient, inpatient, or residential drug treatment program. Join a self-help group for drug abuse. Avoid friends who abuse drugs themselves or tempt you to continue abusing drugs. Eat a balanced diet and begin a regular exercise program. Follow Up with your doctor or as advised by our staff. Contact one of the resources below for help. National [place] on Alcoholism and Drug Dependence www.ncadd.org 633-776-JMNE Narcotics Anonymous www.na.org 531-007-9825 National Alcohol and Substance Abuse Information Center (for referral to treatment programs) www.addictioncareLegitTrader.[employer] Fun 733-940-7423 Get Prompt Medical Attention if any of the following occur: Agitation, anxiety, unable to sleep Unintended weight loss (more than 10 to 15 pounds over 3 months) Seizure Chest pain Fever of 100.4F (38C) or higher, or as directed by your healthcare provider Excess drowsiness or inability to be awakened Shortness of breath Slow breathing under 8 breaths per minute Cough with colored sputum Redness, swelling or tenderness at an injection site Cephalexin Monohydrate Oral tablet What is this medicine? CEPHALEXIN (sef a KOBY in) is a cephalosporin antibiotic. It is used to treat certain kinds of bacterial infections It will not work for colds, flu, or other viral infections. How should I use this medicine? Take this medicine by mouth with a full glass of water. Follow the directions on the prescription label. This medicine can be taken with or without food. Take your medicine at regular intervals. Do not take your medicine more often than directed. Take all of your medicine as directed even if you think you are better. Do not skip doses or stop your medicine early. Talk to your automatic lathe setter regarding the use of this medicine in children. While this drug may be prescribed for selected conditions, precautions do apply. What side effects may I notice from receiving this medicine? Side effects that you should report to your doctor or health college and career counselor as soon as possible: allergic reactions like skin rash, itching or hives, swelling of the face, lips, or tongue breathing problems pain or trouble passing urine redness, blistering, peeling or loosening of the skin, including inside the mouth severe or watery diarrhea unusually weak or tired yellowing of the eyes, skin Side effects that usually do not require medical attention (report to your doctor or health college and career counselor if they continue or are bothersome): gas or heartburn genital or anal irritation headache joint or muscle pain nausea, vomiting What may interact with this medicine? probenecid some other antibiotics What if I miss a dose? If you miss a dose, take it as soon as you can. If it is almost time for your next dose, take only that dose. Do not take double or extra doses. There should be at least 4 to 6 hours between doses. Where should I keep my medicine? Keep out of the reach of children. Store at room temperature between 59 and 86 degrees F (15 and 30 degrees C). Throw away any unused medicine after the expiration date. What should I tell my health care provider before I take this medicine? They need to know if you have any of these conditions: kidney disease stomach or intestine problems, especially colitis an unusual or allergic reaction to cephalexin, other cephalosporins, penicillins, other antibiotics, medicines, foods, dyes or preservatives or trying to get breast-feeding What should I watch for while using this medicine? Tell your doctor or health college and career counselor if your symptoms do not begin to improve in a few days. Do not treat diarrhea with over the counter products. Contact your doctor if you have diarrhea that lasts more than 2 days or if it is severe and watery. If you have diabetes, you may get a false-positive result for sugar in your urine. Check with your doctor or health college and career counselor. Ibuprofen Oral tablet What is this medicine? IBUPROFEN (eye BYOO proe fen) is a non-steroidal anti-inflammatory drug (NSAID). It is used for dental pain, fever, headaches or migraines, osteoarthritis, rheumatoid arthritis, or painful monthly periods. It can also relieve minor aches and pains caused by a cold, flu, or sore throat. How should I use this medicine? Take this medicine by mouth with a glass of water. Follow the directions on the prescription label. Take this medicine with food if your stomach gets upset. Try to not lie down for at least 10 minutes after you take the medicine. Take your medicine at regular intervals. Do not take your medicine more often than directed. A special MedGuide will be given to you by the pharmacist with each prescription and refill. Be sure to read this information carefully each time. Talk to your automatic lathe setter regarding the use of this medicine in children. Special care may be needed. What side effects may I notice from receiving this medicine? Side effects that you should report to your doctor or health college and career counselor as soon as possible: allergic reactions like skin rash, itching or hives, swelling of the face, lips, or tongue black or bloody stools, blood in the urine or in vomit breathing problems changes in vision chest pain general ill feeling or flu-like symptoms nausea or vomiting redness, blistering, peeling or loosening of the skin, including inside the mouth slurred speech or weakness on one side of the body stomach pain unexplained weight gain or swelling unusually weak or tired yellowing of eyes or skin Side effects that usually do not require medical attention (report to your doctor or health college and career counselor if they continue or are bothersome): constipation or diarrhea dizziness gas or heartburn stomach upset What may interact with this medicine? Do not take this medicine with any of the following medications: cidofovir ketorolac methotrexate pemetrexed This medicine may also interact with the following medications: alcohol aspirin diuretics lithium other drugs for inflammation like prednisone warfarin What if I miss a dose? If you miss a dose, take it as soon as you can. If it is almost time for your next dose, take only that dose. Do not take double or extra doses. Where should I keep my medicine? Keep out of the reach of children. Store at room temperature between 15 and 30 degrees C (59 and 86 degrees F). Keep container tightly closed. Throw away any unused medicine after the expiration date. What should I tell my health care provider before I take this medicine? They need to know if you have any of these conditions: asthma cigarette smoker drink more than 3 alcohol containing drinks a day heart disease or circulation problems such as heart failure or leg edema (fluid retention) high blood pressure kidney disease liver disease stomach bleeding or ulcers an unusual or allergic reaction to ibuprofen, aspirin, other NSAIDS, other medicines, foods, dyes, or preservatives or trying to get breast-feeding What should I watch for while using this medicine? Tell your doctor or healthcare professional if your symptoms do not start to get better or if they get worse. This medicine does not prevent heart attack or stroke. In fact, this medicine may increase the chance of a heart attack or stroke. The chance may increase with longer use of this medicine and in people who have heart disease. If you take aspirin to prevent heart attack or stroke, talk with your doctor or health college and career counselor. Do not take other medicines that contain aspirin, ibuprofen, or naproxen with this medicine. Side effects such as stomach upset, nausea, or ulcers may be more likely to occur. Many medicines available without a prescription should not be taken with this medicine. This medicine can cause ulcers and bleeding in the stomach and intestines at any time during treatment. Ulcers and bleeding can happen without warning symptoms and can cause . To reduce your risk, do not smoke cigarettes or drink alcohol while you are taking this medicine. You may get drowsy or dizzy. Do not drive, use machinery, or do anything that needs mental alertness until you know how this medicine affects you. Do not stand or sit up quickly, especially if you are an older patient. This reduces the risk of dizzy or fainting spells. This medicine can cause you to bleed more easily. Try to avoid damage to your teeth and gums when you brush or floss your teeth. You have been given the following additional information: Abscess, Incision And Drainage MRSA Skin Infection, Suspected Or Confirmed Drug Abuse Cephalexin Monohydrate Oral tablet Ibuprofen Oral tablet (Electronically signed by Charley Navarrete A.R.N.P. 11/23/2016 17:19)
--- NOTE | 2016-11-23 18:29 | ED MED RECONCILIATION SUMMARY ---
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 BMI: 25.9 ALLERGIES: Codeine, Sulfa Antibiotics, Toradol The patient's Home Medications are listed below: NONE. The source(s) of the original Home Medication information: patient The following Medications were given to the patient in the Emergency Department: Oxycodone-APAP [PO] PO 1 tab, administered: 11/23/2016 3:38:00 PM Lidocaine [Injection] Injection 1 %, administered: 11/23/2016 3:39:00 PM Ceftriaxone [IM] IM 1 gm, administered: 11/23/2016 3:54:00 PM The following Medications were prescribed to the patient: Keflex 500 mg: take 1 capsule orally every 8 hours for 10 days. No refill. -- Charley Navarrete A.RSwapnaNSwapnaP. Motrin 800 mg tablets: take 1 tablet orally every 8 hours as needed for pain. Dispense thirty (30). No refills. Substitution is permissible. -- Charley Navarrete A.R.N.P.
--- NOTE | 2016-11-23 18:29 | ED MED RECONCILIATION SUMMARY ---
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 BMI: 25.9 ALLERGIES: Codeine, Sulfa Antibiotics, Toradol The patient's Home Medications are listed below: NONE. The source(s) of the original Home Medication information: patient The following Medications were given to the patient in the Emergency Department: Oxycodone-APAP [PO] PO 1 tab, administered: 11/23/2016 3:38:00 PM Lidocaine [Injection] Injection 1 %, administered: 11/23/2016 3:39:00 PM Ceftriaxone [IM] IM 1 gm, administered: 11/23/2016 3:54:00 PM The following Medications were prescribed to the patient: Keflex 500 mg: take 1 capsule orally every 8 hours for 10 days. No refill. -- Charley Navarrete A.RSwapnaNSwapnaP. Motrin 800 mg tablets: take 1 tablet orally every 8 hours as needed for pain. Dispense thirty (30). No refills. Substitution is permissible. -- Charley Navarrete A.R.N.P.
--- NOTE | 2016-11-23 18:29 | ED MAR SUMMARY ---
..... Medication Administration Record [facility] [address] 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 Medication Ordered: Oxycodone-APAP PO 5/325 mg (HIGH ALERT MEDICATION, NOW). Given 15:39 11/23/2016 Maria L Duran R.NSwapna Medication Administered: LIDOCAINE [INJECTION], Dose: 1 % Injection. Medication Ordered: Lidocaine Injection 1% plain (NOW). Given 15:54 11/23/2016 Manjeet Stern RSwapnaNSwapna Medication Administered: CEFTRIAXONE [IM], Dose: 1 gm IM. Medication Ordered: Ceftriaxone IM 1 gm (NOW).
--- NOTE | 2016-11-23 18:29 | ED MAR SUMMARY ---
..... Medication Administration Record [facility] [address] 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 Medication Ordered: Oxycodone-APAP PO 5/325 mg (HIGH ALERT MEDICATION, NOW). Given 15:39 11/23/2016 Maria L Duran R.NSwapna Medication Administered: LIDOCAINE [INJECTION], Dose: 1 % Injection. Medication Ordered: Lidocaine Injection 1% plain (NOW). Given 15:54 11/23/2016 Manjeet Stern RSwapnaNSwapna Medication Administered: CEFTRIAXONE [IM], Dose: 1 gm IM. Medication Ordered: Ceftriaxone IM 1 gm (NOW).
== END 2016-11-23 16:03 | disposition home or self-care (01) ==
LOC: ED SRH 14:35
DX: L02.414 Cutaneous abscess of left upper limb (principal); F11.188 Opioid abuse with other opioid-induced disorder; F41.9 Anxiety disorder, unspecified; I10 Essential (primary) hypertension; F17.210 Nicotine dependence, cigarettes, uncomplicated; Z88.5 Allergy status to narcotic agent; Z88.1 Allergy status to other antibiotic agents; Z88.6 Allergy status to analgesic agent
CPT/HCPCS: 90070; 90131; 90309; 91672